=== PATIENT | female | born 1985 | race Two or more races ===

== ENCOUNTER 2018-01-22 17:07 | Inpatient (IN) | payer SELFPAY ==
[~2018-01-22] VITALS: Ht 157.5 cm; Wt 79.8 kg
[2018-01-22] MEDS ORDERED: OXYTOCIN 30 UNIT/500 ML PREMIX 500 ML IV PRN (18:30)
[2018-01-22] MEDS ORDERED: LIDOCAINE 1% PF 30 ML VIAL. INJ PRN (18:30)
[2018-01-22] MEDS ORDERED: fentaNYL PF VIAL 100 MCG/2 ML VIAL IV PRN (18:30)
[2018-01-22] MEDS ORDERED: 0.9 % SODIUM CHLORIDE 10 ML DISP.SYRIN. IV PRN (18:30)
[2018-01-22] MEDS ORDERED: ONDANSETRON PF 4 MG/2 ML VIAL. IV PRN (18:30)
[2018-01-22 18:34] LABS: BASO # 0.1 x10^3/uL (0.0-0.2); BASO % 1 % (0-3); EOS # 0.6 x10^3/uL (0.0-0.7); EOS % 4 % (0-3); HEMATOCRIT 38.8 % (36.0-47.0); LYMPH # 2.5 x10^3/uL (1.0-4.8); LYMPH % 18 % (24-48); MEAN CORPUSCULAR HEMOGLOBIN 28 pg (25-35); MEAN CORPUSCULAR HGB CONC 33 g/dL (31-37); MEAN CORPUSCULAR VOLUME 82 fL (79-100); MONO # 0.8 x10^3/uL (0.0-1.1); MONO % 6 % (0-9); NEUT # 9.8 x10^3uL (1.8-7.7); NEUT % 71 % (31-73); PLATELET COUNT 229 x10^3/uL (140-400); RED BLOOD COUNT 4.72 x10^6/uL (3.50-5.40); RED CELL DISTRIBUTION WIDTH 14.3 % (11.5-14.5); WHITE BLOOD COUNT 13.8 x10^3/uL (4.0-11.0)
[2018-01-22] MEDS: IV RINGERS,LACTATED 1000ML 1,000 ML IV SCH ×3 (18:37→20:45)
[2018-01-22] MEDS: BUTORPHANOL 2 MG/ML VIAL. IV PRN (23:23)
[2018-01-23] MEDS: BUTORPHANOL 2 MG/ML VIAL. IV PRN (03:30)
[2018-01-23] MEDS: IV RINGERS,LACTATED 1000ML 1,000 ML IV SCH ×2 (03:31→08:13)
[2018-01-23] MEDS ORDERED: L&D EPIDURAL 50 ML SYRINGE. EP ONE (04:20)
[2018-01-23] MEDS ORDERED: ROPIVacaine 0.2% IN 0.9%NACL PF 40 MG/20 ML DISP.SYRIN. ONE (04:20)
[2018-01-23] MEDS ORDERED: L&D EPIDURAL SYRINGE 50 ML EP ONE ×3 (04:21→12:21)
[2018-01-23] MEDS ORDERED: AMPICILLIN SODIUM 2 GM in IV NORMAL SALINE 100ML 100 ML IV ONE (04:30)
[2018-01-23] MEDS ORDERED: IV RINGERS,LACTATED 1000ML 1,000 ML IV SCH (05:00)
[2018-01-23] MEDS ORDERED: ONDANSETRON PF 4 MG/2 ML VIAL. IV PRN (05:00)
[2018-01-23] MEDS ORDERED: ePHEDrine PF IN SALINE 50 MG/5 ML DISP.SYRIN IV PRN (05:00)
[2018-01-23] MEDS ORDERED: fentaNYL PF VIAL 100 MCG/2 ML VIAL EPI PRN (05:00)
[2018-01-23] MEDS ORDERED: NALOXONE 0.4 MG/ML VIAL. IV PRN (05:00)
[2018-01-23] MEDS ORDERED: ROPIVacaine 0.2% IN 0.9%NACL PF 40 MG/20 ML DISP.SYRIN. EPI PRN (05:00)
[2018-01-23] MEDS: AMPICILLIN SODIUM 1 GM in IV NORMAL SALINE 50ML 50 ML IV SCH ×4 (08:20→20:30)
[2018-01-23] MEDS ORDERED: LIDOCAINE 2% PF Vial for OR 5 ML VIAL. ONE (13:05)
--- NOTE | 2018-01-23 14:03 | PDOC1 ---
OB - History Hx of Present Care: Limited Care Ultrasounds: Normal mid trimester US Obstetrical Complications: None Medical Complications: None Past Family/Social History * Past Medical, Surgical, Family and Obstetric Histories reviewed from chart. Rubella: Immune RPR/VDRL: Negative GBS Status: Positive HBsAG: Negative OB - Chief Complaint & HPI Date of Admission: Date of Admission: Jan 22, 2018 at 17:07 Chief Complaint/History : 3 Para: 2 EGA: 39 Reason for admission: active labor Other reason for admission: previous LTCS x 2 Admission Nurse Assessment Rev: Yes OB - Admission Exam Physical Exam Vitals: VS - Last 72 Hours, by Label Date Time Temp Pulse Resp B/P (MAP) Pulse Ox O2 Delivery O2 Flow Rate FiO2 01/23/18 00:00 22 Room Air 01/22/18 23:23 22 Room Air HEENT: Normal Heart: Regular Rate Lungs: Clear Abdomen: Gravid, Non tender, Soft Extremities: Edema Reflexes: Normal Cervical Dilatation: 2cm Effacement: 75% Station: -3 Membranes: Intact Heart Rate: Normal Accelerations: Accelerations Present Decelerations: No decelerations Contractions on Admission: 6-10 Minutes Apart Intensity: Moderate Text A: 39 wks IUP Previous LTCS x 2 Active labor desires GBS positive P: ADmit for labor management. Start Ampicillin for GBS positive status. JENNIFER VICTORIA Jr, MD Jan 23, 2018 14:03
--- NOTE | 2018-01-23 14:05 | PDOC ---
VAGINAL DELIVERY DATE DATE: 01/23/18 TIME: 14:03 : 3 Para: 3 EGA: 39 VAGINAL DELIVERY: VTX VACCUM ASSISTED: Yes NUMBER OF PULLS one NUMBER OF POP OFFS none MAXIMUM PRESSURE 600 mmhg PLACENTA: Spontaneous 8/9 SEX: Male WEIGHT Weight [ 3150 gm] Nuchal Cord: Yes, Times 1 Amniotic Fluid: Thick Meconium PAIN: Epidural EPISIOTOMY: No EXTENSION: Yes (2nd degree midline laceration) REPAIRED WITH 2-0 vicryl EBL 400 ml COMPLICATIONS none CONDITION stable Signs of Intrauterine Infectio: None Shoulder Dystocia: No JENNIFER VICTORIA Jr, MD Jan 23, 2018 14:05
[2018-01-23] MEDS ORDERED: MMR per PROTOCOL. MC PRN (14:15)
[2018-01-23] MEDS ORDERED: PHENYLEPH/MINERAL OIL/PETROLAT RECTAL OINTMENT 28GM TUBE. RC PRN (14:15)
[2018-01-23] MEDS ORDERED: IBUPROFEN 800 MG TABLET. PO PRN (14:15)
[2018-01-23] MEDS ORDERED: diphenhydrAMINE HCL 25 MG CAPSULE PO PRN (14:15)
[2018-01-23] MEDS ORDERED: oxyCODONE/APAP 5/325 1 TAB TABLET PO PRN (14:15)
[2018-01-23] MEDS ORDERED: OXYTOCIN 30 UNIT/500 ML PREMIX 500 ML IV PRN (14:15)
[2018-01-23] MEDS ORDERED: SIMETHICONE 80 MG TAB.CHEW PO PRN (14:15)
[2018-01-23] MEDS ORDERED: MAGNESIUM HYDROXIDE 2,400 MG/30 ML ORAL.SUSP. PO PRN (14:15)
[2018-01-23] MEDS ORDERED: BENZOCAINE 20% TOPICAL AEROSOL SPRAY 57GM CAN. TP PRN (14:15)
[2018-01-23] MEDS ORDERED: MAG HYDROX/ALUMINUM HYD/SIMETH 30 ML ORAL.SUSP PO PRN (14:15)
[2018-01-23] MEDS ORDERED: HYDROCORTISONE 1% TOPICAL OINTMENT 30GM TUBE. TP PRN (14:15)
[2018-01-23] MEDS ORDERED: ACETAMINOPHEN 325 MG TABLET. PO PRN (14:15)
[2018-01-23] MEDS ORDERED: 0.9 % SODIUM CHLORIDE 10 ML DISP.SYRIN. IV PRN (14:15)
[2018-01-23] MEDS ORDERED: ZOLPIDEM 5 MG TABLET. PO PRN (14:15)
[2018-01-23] MEDS: IBUPROFEN 800 MG TABLET. PO PRN (14:45)
[2018-01-23 16:10] VITALS: BP 92/59
[2018-01-23 16:15] VITALS: BP 92/59
[2018-01-23 18:39] VITALS: BP 91/60
[2018-01-24] MEDS: AMPICILLIN SODIUM 1 GM in IV NORMAL SALINE 50ML 50 ML IV SCH ×3 (00:30→07:34)
[2018-01-24] MEDS: IBUPROFEN 800 MG TABLET. PO PRN ×3 (03:40→19:30)
[2018-01-24 04:26] LABS: BASO # 0.1 x10^3/uL (0.0-0.2); BASO % 0 % (0-3); EOS # 0.5 x10^3/uL (0.0-0.7); EOS % 3 % (0-3); HEMATOCRIT 29.9 % (36.0-47.0); HEMOGLOBIN 9.9 g/dL (12.0-15.5); LYMPH # 2.2 x10^3/uL (1.0-4.8); LYMPH % 15 % (24-48); MEAN CORPUSCULAR HEMOGLOBIN 28 pg (25-35); MEAN CORPUSCULAR HGB CONC 33 g/dL (31-37); MEAN CORPUSCULAR VOLUME 84 fL (79-100); MONO # 0.9 x10^3/uL (0.0-1.1); MONO % 6 % (0-9); NEUT # 11.8 x10^3uL (1.8-7.7); NEUT % 76 % (31-73); PLATELET COUNT 154 x10^3/uL (140-400); RED BLOOD COUNT 3.58 x10^6/uL (3.50-5.40); RED CELL DISTRIBUTION WIDTH 14.7 % (11.5-14.5); WHITE BLOOD COUNT 15.5 x10^3/uL (4.0-11.0)
[2018-01-24 05:46] VITALS: BP 89/54
[2018-01-24] MEDS: FERROUS SULFATE 325 MG TABLET. PO SCH ×3 (07:33→16:54)
--- NOTE | 2018-01-24 08:18 | PDOC ---
OB Progress Note Date of Service 01/24/18 Time of Evaluation 0815 Notes Pt. feeling well. No complaints. Lab Laboratory Tests Test 01/22/18 18:20 01/24/18 03:30 White Blood Count 13.8 x10^3/uL (4.0-11.0) 15.5 x10^3/uL (4.0-11.0) Red Blood Count 4.72 x10^6/uL (3.50-5.40) 3.58 x10^6/uL (3.50-5.40) Hemoglobin 13.0 g/dL (12.0-15.5) 9.9 g/dL (12.0-15.5) Hematocrit 38.8 % (36.0-47.0) 29.9 % (36.0-47.0) Mean Corpuscular Volume 82 fL (79-100) 84 fL (79-100) Mean Corpuscular Hemoglobin 28 pg (25-35) 28 pg (25-35) Mean Corpuscular Hemoglobin Concent 33 g/dL (31-37) 33 g/dL (31-37) Red Cell Distribution Width 14.3 % (11.5-14.5) 14.7 % (11.5-14.5) Platelet Count 229 x10^3/uL (140-400) 154 x10^3/uL (140-400) Neutrophils (%) (Auto) 71 % (31-73) 76 % (31-73) Lymphocytes (%) (Auto) 18 % (24-48) 15 % (24-48) Monocytes (%) (Auto) 6 % (0-9) 6 % (0-9) Eosinophils (%) (Auto) 4 % (0-3) 3 % (0-3) Basophils (%) (Auto) 1 % (0-3) 0 % (0-3) Neutrophils # (Auto) 9.8 x10^3uL (1.8-7.7) 11.8 x10^3uL (1.8-7.7) Lymphocytes # (Auto) 2.5 x10^3/uL (1.0-4.8) 2.2 x10^3/uL (1.0-4.8) Monocytes # (Auto) 0.8 x10^3/uL (0.0-1.1) 0.9 x10^3/uL (0.0-1.1) Eosinophils # (Auto) 0.6 x10^3/uL (0.0-0.7) 0.5 x10^3/uL (0.0-0.7) Basophils # (Auto) 0.1 x10^3/uL (0.0-0.2) 0.1 x10^3/uL (0.0-0.2) Treponema pallidum Antibody Nonreactive (Nonreactive) Laboratory Tests Test 01/24/18 03:30 White Blood Count 15.5 x10^3/uL (4.0-11.0) Red Blood Count 3.58 x10^6/uL (3.50-5.40) Hemoglobin 9.9 g/dL (12.0-15.5) Hematocrit 29.9 % (36.0-47.0) Mean Corpuscular Volume 84 fL (79-100) Mean Corpuscular Hemoglobin 28 pg (25-35) Mean Corpuscular Hemoglobin Concent 33 g/dL (31-37) Red Cell Distribution Width 14.7 % (11.5-14.5) Platelet Count 154 x10^3/uL (140-400) Neutrophils (%) (Auto) 76 % (31-73) Lymphocytes (%) (Auto) 15 % (24-48) Monocytes (%) (Auto) 6 % (0-9) Eosinophils (%) (Auto) 3 % (0-3) Basophils (%) (Auto) 0 % (0-3) Neutrophils # (Auto) 11.8 x10^3uL (1.8-7.7) Lymphocytes # (Auto) 2.2 x10^3/uL (1.0-4.8) Monocytes # (Auto) 0.9 x10^3/uL (0.0-1.1) Eosinophils # (Auto) 0.5 x10^3/uL (0.0-0.7) Basophils # (Auto) 0.1 x10^3/uL (0.0-0.2) Medications Current Medications Sodium Chloride (Normal Saline Flush) 3 ml QSHIFT PRN IV AFTER MEDS AND BLOOD DRAWS; Start 01/22/18 at 18:30 Ringer's Solution 1,000 ml @ 125 mls/hr Q8H IV Last administered on 01/23/18at 08:13; Start 01/22/18 at 18:18 Butorphanol Tartrate (Stadol) 2 mg PRN Q1HR PRN IV Severe labor pain Last administered on 01/23/18at 03:30; Start 01/22/18 at 18:30 Fentanyl Citrate (Fentanyl 2ml Vial) 100 mcg PRN Q30MIN PRN IV Severe pain; Start 01/22/18 at 18:30 Ondansetron HCl (Zofran) 4 mg PRN Q4HRS PRN IV NAUSEA/VOMITING; Start 01/22/18 at 18:30; Stop 01/23/18 at 05:02; Status DC Lidocaine HCl (Xylocaine 1% Pf 30ml Vial) 30 ml 1X PRN PRN INJ SEE COMMENTS; Start 01/22/18 at 18:30; Stop 01/24/18 at 18:29 Oxytocin/Sodium Chloride 500 ml @ 0 mls/hr CONT PRN PRN IV Post delivery bleeding Last administered on 01/23/18at 10:23; Start 01/22/18 at 18:30 Ibuprofen (Motrin) 800 mg PRN Q6HRS PRN PO PAIN Last administered on 01/24/18at 03:40; Start 01/22/18 at 18:30 Ampicillin Sodium 2 gm/Sodium Chloride 100 ml @ 200 mls/hr 1X ONCE IV Last administered on 01/23/18at 04:41; Start 01/23/18 at 04:30; Stop 01/23/18 at 04:59 ; Status DC Ampicillin Sodium 1 gm/Sodium Chloride 50 ml @ 100 mls/hr Q4H IV Last administered on 01/23/18at 13:23; Start 01/23/18 at 08:30 Ropivacaine/ Sodium Chloride (ROPIVacaine 0.2% - 0.9%NACL PF) 40 mg STK-MED ONCE .ROUTE ; Start 01/23/18 at 04:20; Stop 01/23/18 at 04:21; Status DC Ropivacaine/ Fentanyl/NS 50 ml @ As Directed STK-MED ONCE EP ; Start 01/23/18 at 04:21; Stop 01/23/18 at 04:22; Status DC Ringer's Solution 1,000 ml @ 1,000 mls/hr Q1H IV ; Start 01/23/18 at 05:00; Stop 01/23/18 at 05:59; Status DC Ephedrine Sulfate (ePHEDrine PF IN SALINE SYRINGE) 10 mg PRN Q2MIN PRN IV IF SBP<90; Start 01/23/18 at 05:00 Naloxone HCl (Narcan) 0.4 mg PRN Q1MIN PRN IV SEE COMMENTS; Start 01/23/18 at 05:00 Fentanyl Citrate (Fentanyl 2ml Vial) 100 mcg PRN 1X PRN EPI FOR ANESTHESIA; Start 01/23/18 at 05:00; Stop 01/24/18 at 04:59; Status DC Ondansetron HCl (Zofran) 4 mg PRN Q6HRS PRN IV NAUSEA/VOMITING; Start 01/23/18 at 05:00 Ropivacaine/ Sodium Chloride (ROPIVacaine 0.2% - 0.9%NACL PF) 40 mg PRN 1X PRN EPI SEE COMMENTS; Start 01/23/18 at 05:00; Stop 01/24/18 at 04:59; Status DC Ropivacaine/ Fentanyl/NS 50 ml @ As Directed STK-MED ONCE EP ; Start 01/23/18 at 08:06; Stop 01/23/18 at 08:07; Status DC Ropivacaine/ Fentanyl/NS 50 ml @ As Directed STK-MED ONCE EP ; Start 01/23/18 at 12:21; Stop 01/23/18 at 12:22; Status DC Lidocaine HCl (Lidocaine Pf 2% Vial) 5 ml STK-MED ONCE .ROUTE ; Start 01/23/18 at 13:05; Stop 01/23/18 at 13:06; Status DC Sodium Chloride (Normal Saline Flush) 10 ml QSHIFT PRN IV AFTER MEDS AND BLOOD DRAWS; Start 01/23/18 at 14:15 Oxytocin/Sodium Chloride 500 ml @ 62.5 mls/hr CONT PRN IV SEE I/O RECORD; Start 01/23/18 at 14:15; Stop 01/23/18 at 23:47; Status DC Acetaminophen (Tylenol) 650 mg PRN Q6HRS PRN PO MILD PAIN / TEMP; Start at 14:15 Ibuprofen (Motrin) 800 mg PRN Q8HRS PRN PO INFLAMMATION/PAIN PREVENTION; Start 01/23/18 at 14:15; Status UNV Docusate Sodium (Colace) 100 mg PRN BID PRN PO CONSTIPATION 1ST CHOICE; Start 01/23/18 at 14:15 Magnesium Hydroxide (Milk Of Magnesia) 2,400 mg PRN DAILY PRN PO CONSTIPATION 2ND CHOICE; Start 01/23/18 at 14:15 Al Hydroxide/Mg Hydroxide (Mylanta Plus Xs) 30 ml PRN Q4HRS PRN PO HEARTBURN / GAS; Start 01/23/18 at 14:15 Simethicone (Gas-X) 80 mg PRN AFTMEALHC PRN PO GAS / BLOATING; Start 01/23/18 at 14:15 Diphenhydramine HCl (Benadryl) 25 mg PRN Q6HRS PRN PO ITCHING; Start 01/23/18 at 14:15 Benzocaine (Americaine) 1 spray PRN QID PRN TP TOPICAL PAIN Last administered on 01/23/18at 14:45; Start 01/23/18 at 14:15 Phenyleph/Shark Oil/Min Oil/Petrol (Preparation H) 1 beatriz PRN QID PRN RC RECTAL PAIN; Start 01/23/18 at 14:15 Hydrocortisone (Cortaid) 1 beatriz PRN QID PRN TP PERINEAL PAIN; Start 01/23/18 at 14:15 Ferrous Sulfate (Feosol) 325 mg BIDWMEALS PO ; Start 01/24/18 at 08:00 Zolpidem Tartrate (Ambien) 5 mg PRN QHS PRN PO INSOMNIA, MAY REPEAT X1; Start 01/23/18 at 14:15 Info (Do NOT chart on this placeholder) 1 ea 1X PRN PRN MC SEE COMMENTS; Start 01/23/18 at 14:15 Info (Do NOT chart on this placeholder) 1 ea 1X PRN PRN MC SEE COMMENTS; Start 01/23/18 at 14:15 Oxycodone/ Acetaminophen (Percocet 5/325) 2 tab PRN Q4HRS PRN PO MODERATE PAIN , SEVERE PAIN; Start 01/23/18 at 14:15 Exam Abd: soft, nontender, fundus firm Assessment PPD#1 s/p Plan of Care: Continue current Tx, Mgmt JENNIFER VICTORIA Jr, MD Jan 24, 2018 08:18
[2018-01-24 09:00] VITALS: BP 92/57
[2018-01-24] MEDS: IV RINGERS,LACTATED 1000ML 1,000 ML IV SCH ×2 (10:18→17:04)
[2018-01-24] MEDS: DOCUSATE SODIUM 100 MG CAPSULE. PO PRN (19:30)
[2018-01-24 22:09] VITALS: BP 84/53
[2018-01-25 05:53] VITALS: BP 97/62
[2018-01-25] MEDS: IBUPROFEN 800 MG TABLET. PO PRN ×2 (09:32→16:54)
[2018-01-25] MEDS: DOCUSATE SODIUM 100 MG CAPSULE. PO PRN (09:32)
[2018-01-25] MEDS: FERROUS SULFATE 325 MG TABLET. PO SCH (09:32)
[2018-01-25 11:10] VITALS: BP 98/66
[2018-01-25] MEDS ORDERED: HYDR-971 PO (13:58)
[2018-01-25] MEDS ORDERED: NAPR-514 PO (13:58)
--- NOTE | 2018-01-25 14:00 | PDOC3 ---
OB DISCHARGE SUMMARY DATE OF ADMISSION: 01/23/18 DATE OF DISCHARGE: 01/24/18 REASON FOR ADMISSION: Onset of labor PROCEDURES: Ultrasound INTRAPARTUM PROCEDURES: Spontanous Vag Deliv, Others () PROCEDURES: None OPERATIONS: None DISCHARGE DIAGNOSIS: Term Delivered DISCHARGE INFORMATION: Activity, Diet HOSPITAL COURSE Unremarkable CONDITION AT DISCHARGE Stable PIPER FOY MD Jan 25, 2018 14:00
[2018-01-25 15:21] VITALS: BP 99/64
[2018-01-25] MEDS ORDERED: MEASLES, MUMPS & RUBELLA VACC 0.5 ML VIAL. VAX SQ ONE (16:30)
--- NOTE | 2018-01-26 19:07 | PATHOLOGY ---
[facility] Accession Number: [id number] . 01 Material submitted: . PLACENTA WITH CORD . 01 Clinical history: . IUP, vaginal delivery Previous x2 Thick and/or viscid meconium EDC 9 Apgars 8/9 G3, P2 Additional history per requisition . 02 Diagnosis: 446 gram term placenta of an estimated 39 weeks gestation with attached membranes and umbilical cord: - Few sub-amniotic pigmented macrophages consistent with meconium staining. - Small placental infarct. - Small succenturiate lobe. QTP/01/26/2018 . 02 Comment: There is no evidence of an acute chorioamnionitis or villitis. (JPM:nahed 01/26/2018) . 02 Electronically signed: . Andrei Fernandez MD, Pathologist NPI- [id number] . 01 Gross description: . Received in formalin labeled "Vasquez, Marilou, placenta," is a round brasher placenta with attached membranes and umbilical cord. The trimmed placental disc weighs 446 grams and measures 18.9 x 18.3 by up to 1.8 cm in greatest dimensions. A possible succenturiate lobe is present at the placental disc margin, measuring 2.2 x 2.2 x 0.6 cm. The membranes are pale merino and partially edematous in appearance, and the site of the membrane rupture is 2.6 cm from the nearest placental disc margin. The surface is intact and dusky blue-lindsey in appearance, displaying arborizing vasculature and focal fibrin deposition encompassing less than 5% of the total surface. A faint greenish tinge is noted throughout the surface. The trivascular umbilical cord inserts eccentrically, 6.6 cm from the nearest placental disc edge. The cord measures 41 cm in length by up to 1.5 cm in diameter and is pale merino to dusky lindsey-merino in appearance, displaying moderate helical twisting. The maternal surface cotyledons are intact and complete. A single pale merino possible surface nodule is present, measuring 0.6 cm in maximum dimension. Serial sectioning reveals spongy, dark red-brown cut surfaces. A single light merino possible parenchymal nodule is noted, measuring 0.5 cm in maximum dimension and encompassing less than 1% of the total placental disc volume. The specimen is submitted representatively as follows: . A1: Umbilical cord and surface vessels, to representatively include surface fibrin deposition A2: Membrane roll and peripheral placental segment A3: Full-thickness placental cross section A4: Possible succenturiate lobe junction A5: Medical Scribe possible maternal surface and parenchymal nodules (DAC; 01/25/2018) XDC/XDC . 02 Pathologist provided ICD-10: O43.893, O77.0, O43.813, Z37.0, Z3A.39 . 02 CPT . [id number] Performed at: 01 [facility] [address], [place] [id number] MD Escobar Salinas MD Phone: [phone] Performed at: 02 [facility] [address] [place], [place] [id number] MD Andrei Fernandez MD Phone: [phone]
== END 2018-01-25 18:41 | disposition home or self-care (01) | DRG 774 ==
LOC: 3 SO LND 17:07 → OBSVTOIN 17:07 → 3 NORTH 01-23 16:10
PROVIDERS: ADMIT Specialist; ATTEND Specialist
PROC: 10D07Z6 Extraction of Products of Conception, Vacuum, Via Natural or Artificial Opening (ICD-10-PCS; principal; 2018-01-23)
PROC: 0KQM0ZZ Repair Perineum Muscle, Open Approach (ICD-10-PCS; 2018-01-23)
PROC: 3E0R3BZ Introduction of Anesthetic Agent into Spinal Canal, Percutaneous Approach (ICD-10-PCS; 2018-01-23)
PROC: 00HU33Z Insertion of Infusion Device into Spinal Canal, Percutaneous Approach (ICD-10-PCS; 2018-01-23)
DX: O34.211 Maternal care for low transverse scar from previous cesarean delivery (principal); O99.834 Other infection carrier state complicating childbirth; O77.0 Labor and delivery complicated by meconium in amniotic fluid; O69.81X0 Labor and delivery complicated by cord around neck, without compression, not applicable or unspecified; O70.1 Second degree perineal laceration during delivery; Z37.0 Single live birth; Z3A.39 39 weeks gestation of pregnancy
CPT/HCPCS: 36415; 85025; 86592; 86850; 86900; 86901; 86920; 88307; 90707; J0290; J2001; J2590; J2795; J7120